=== PATIENT | female | born 1995 | race Hispanic/Latino ===

== ENCOUNTER 2018-08-26 18:51 | Observation (INO) | payer MEDICAID ==
[~2018-08-26] VITALS: Ht 149.9 cm; Wt 88.0 kg
== END 2018-08-26 21:30 | disposition home or self-care (01) ==
LOC: LDH 18:51
PROVIDERS: ADMIT Obstetrics & Gynecology; ATTEND Obstetrics & Gynecology
DX: O26.893 Other specified pregnancy related conditions, third trimester (principal); R10.30 Lower abdominal pain, unspecified; M54.9 Dorsalgia, unspecified; Z87.891 Personal history of nicotine dependence; O99.323 Drug use complicating pregnancy, third trimester; F12.90 Cannabis use, unspecified, uncomplicated; Z3A.34 34 weeks gestation of pregnancy
CPT/HCPCS: G0378 ×4

== ENCOUNTER 2020-12-17 11:09 | Emergency (ER) | payer MEDICAID, OTHER ==
[~2020-12-17 11:09] MED LIST: FERR-82 PO; PNV1TABL17 PO
[2020-12-17] MEDS ORDERED: METOCLOPRAMIDE 10 MG/2 ML VIAL ONE (11:32)
[2020-12-17 11:33] LABS: BASOPHILS % (AUTO) 0.3 % (0.0-5.0); EOSINOPHILS % (AUTO) 0.2 % (0.0-8.0); HEMATOCRIT 35.9 % (36-48); LYMPHOCYTES % (AUTO) 13.4 % (21.0-51.0); MEAN CORPUSCULAR HEMOGLOBIN 27.8 pg (27.0-33.0); MEAN CORPUSCULAR HGB CONC 32.9 g/dL (32.0-36.0); MEAN CORPUSCULAR VOLUME 84.7 fL (79-99); MONOCYTES % (AUTO) 2.9 % (3.0-13.0); NEUTROPHILS % (AUTO) 82.6 % (40.0-77.0); PLATELET COUNT (AUTO) 326 K/uL (130-400); RED BLOOD CELL COUNT(AUTO) 4.24 MIL/uL (4.00-5.50); RED CELL DISTRIBUTION WIDTH 14.2 % (11.0-15.5); WHITE BLOOD COUNT (AUTO) 14.5 K/uL (4.8-10.8)
[2020-12-17 11:41] LABS: CREATININE 0.6 mg/dL (0.5-1.5); POTASSIUM 3.9 mmol/L (3.5-5.1)
[2020-12-17 11:48] LABS: ALBUMIN 3.3 g/dL (3.5-5.0); BILIRUBIN,TOTAL 0.3 mg/dL (0.2-1.0); TOTAL PROTEIN, SERUM 7.5 g/dL (6.0-8.3)
[2020-12-17] MEDS ORDERED: 0.9%NACL 1000ML 1,000 ML IV ONE (11:49)
[2020-12-17 12:02] LABS: APPEARANCE,URINE Cloudy (CLEAR); BILIRUBIN,URINE Negative (NEGATIVE); COLOR,URINE Yellow (YELLOW); GLUCOSE, URINE (UA) Negative (NEGATIVE); KETONES,URINE Trace mg/dL (NEGATIVE); LEUKOCYTE ESTERASE ,URINE Trace (NEGATIVE); NITRATE,URINE Negative (NEGATIVE); OCCULT BLOOD,URINE Trace (NEGATIVE); PH,URINE 7.5 (5.0-8.0); PROTEIN,URINE Trace mg/dL (NEGATIVE)
[2020-12-17 12:05] LABS: HCG,QUAL RESULT POSITIVE (NEGATIVE)
[2020-12-17 12:10] LABS: BACTERIA,URINE Moderate /HPF (None Seen); MUCUS,URINE Moderate LPF (None Seen); SQUAMOUS EPITHELIAL CELL,UR 30-50 /HPF (0-2)
== END 2020-12-17 13:41 | disposition home or self-care (01) ==
LOC: EDH 11:09
DX: O26.891 Other specified pregnancy related conditions, first trimester (principal); R82.71 Bacteriuria; O21.8 Other vomiting complicating pregnancy; R10.30 Lower abdominal pain, unspecified; Z3A.08 8 weeks gestation of pregnancy
CPT/HCPCS: 36415; 76801; 80053; 81001; 81025; 83690; 84702; 85025; 86850; 86900; 86901; 87077; 87088; 87186; 96361; 96374; 99284; J2765; J7030

== ENCOUNTER 2021-07-10 14:11 | Inpatient (IN) | payer MEDICAID ==
[~2021-07-10] VITALS: Ht 149.9 cm; Wt 94.3 kg
[2021-07-10 15:11] LABS: AMPHET/METH SCREEN,URINE NEGATIVE (NEGATIVE); BARBITURATE SCREEN, URINE NEGATIVE (NEGATIVE); BENZODIAZEPINES SCREEN,URINE NEGATIVE (NEGATIVE); CANNABINOID SCREEN,URINE NEGATIVE (NEGATIVE); COCAINE SCREEN,URINE NEGATIVE (NEGATIVE); OPIATE SCREEN,URINE NEGATIVE (NEGATIVE); PHENCYCLIDINE SCREEN,URINE NEGATIVE (NEGATIVE)
[2021-07-10] MEDS ORDERED: LACTATED RINGERS 1000ML 1,000 ML IV ONE (15:37)
[2021-07-10] MEDS ORDERED: LACTATED RINGERS 1000ML 1,000 ML IV SCH ×2 (16:00→18:00)
[2021-07-10] MEDS ORDERED: CEFAZOLIN SODIUM 1 GM VIAL ONE (17:56)
[2021-07-10] MEDS ORDERED: CITRIC ACID/SODIUM CITRATE 30 ML UDCUP ONE (17:57)
[2021-07-10] MEDS ORDERED: METOCLOPRAMIDE 10 MG/2 ML VIAL ONE (17:57)
[2021-07-10] MEDS ORDERED: CITRIC ACID/SODIUM CITRATE 30 ML UDCUP PO PRN (18:00)
[2021-07-10] MEDS ORDERED: METOCLOPRAMIDE 10 MG/2 ML VIAL IVP PRN (18:00)
[2021-07-10] MEDS ORDERED: CEFAZOLIN SODIUM 1 GM VIAL IVP PRN (18:00)
[2021-07-10 18:14] LABS: HEMATOCRIT 30.9 % (36-48); MEAN CORPUSCULAR HEMOGLOBIN 26.6 pg (27.0-33.0); MEAN CORPUSCULAR HGB CONC 31.7 g/dL (32.0-36.0); MEAN CORPUSCULAR VOLUME 83.7 fL (79-99); RED BLOOD CELL COUNT(AUTO) 3.69 MIL/uL (4.00-5.50); RED CELL DISTRIBUTION WIDTH 14.9 % (11.0-15.5); WHITE BLOOD COUNT (AUTO) 8.2 K/uL (4.8-10.8)
[2021-07-10] MEDS ORDERED: FENTANYL CITRATE PF 50 MCG/1 ML 2ML VIAL ONE (18:15)
[2021-07-10] MEDS ORDERED: MORPHINE PF 100MG/10ML AMP IV ONE (18:15)
[2021-07-10] MEDS ORDERED: CEFAZOLIN SODIUM 1 GM VIAL IVP ONE (18:22)
[2021-07-10] MEDS ORDERED: CITRIC ACID/SODIUM CITRATE 30 ML UDCUP PO SCH (18:30)
[2021-07-10] MEDS ORDERED: ONDANSETRON 4MG INJ ONE (18:41)
[2021-07-10] MEDS ORDERED: PHENYLEPHRINE HCL 10 MG/ML 1ML VIAL IV ONE (19:06)
[2021-07-10] MEDS ORDERED: ONDANSETRON 4MG INJ IVP PRN (20:00)
[2021-07-10] MEDS ORDERED: NALOXONE HCL 0.4 MG/1 ML ML IVP PRN ×2 (20:00)
[2021-07-10] MEDS ORDERED: LORATADINE 10 MG TABLET PO PRN (20:00)
[2021-07-10] MEDS ORDERED: PROMETHAZINE HCL 25 MG/ML 1ML AMPULE IM PRN (20:00)
[2021-07-10] MEDS ORDERED: OXYTOCIN-LR 20 UNITS/1000 ML 1,000 ML IV PRN (20:00)
[2021-07-10] MEDS ORDERED: CALDOLOR 800MG+NS 250ML 250 ML IV PRN (20:00)
[2021-07-10] MEDS ORDERED: MEPERIDINE-PF 25 MG/ML SYG IV PRN (20:00)
[2021-07-10] MEDS ORDERED: DiphenhydrAMINE HCL 50 MG/ML VIAL IVP PRN (20:00)
[2021-07-10] MEDS ORDERED: MEPERIDINE-PF 75 MG/ML SYG IM PRN (20:00)
[2021-07-10] MEDS ORDERED: 0.9%NACL 10ML VIAL IVP PRN (20:00)
[2021-07-10] MEDS ORDERED: EPHEDRINE SULFATE 50 MG/ML AMPULE IVP PRN (20:00)
[2021-07-10] MEDS ORDERED: DEXTROSE 5 %-0.45 % NACL 1,000 ML IV PRN (20:00)
[2021-07-10 21:31] VITALS: BP 117/76
[2021-07-10 23:13] VITALS: BP 108/68
[2021-07-11 03:17] VITALS: BP 112/76
[2021-07-11] MEDS: CALDOLOR 800MG+NS 250ML 250 ML IV SCH ×2 (03:51→12:00)
[2021-07-11 06:54] LABS: HEMATOCRIT 33.7 % (36-48); MEAN CORPUSCULAR HEMOGLOBIN 26.6 pg (27.0-33.0); MEAN CORPUSCULAR HGB CONC 31.8 g/dL (32.0-36.0); MEAN CORPUSCULAR VOLUME 83.6 fL (79-99); RED BLOOD CELL COUNT(AUTO) 4.03 MIL/uL (4.00-5.50); RED CELL DISTRIBUTION WIDTH 14.8 % (11.0-15.5); WHITE BLOOD COUNT (AUTO) 12.6 K/uL (4.8-10.8)
[2021-07-11 07:23] VITALS: BP 117/67
[2021-07-11] MEDS ORDERED: ACETAMINOPHEN 500 MG TABLET PO PRN (08:00)
[2021-07-11] MEDS ORDERED: BISACODYL 10 MG SUPP.RECT RC PRN (08:00)
[2021-07-11] MEDS ORDERED: HYDROCODONE/ACETAMINOPHEN 5/325 MG TAB PO PRN (08:00)
[2021-07-11] MEDS: SIMETHICONE 80 MG TAB.CHEW PO PRN ×2 (09:00→21:45)
[2021-07-11] MEDS: DOCUSATE SODIUM 100 MG CAP PO SCH ×2 (09:00→21:44)
[2021-07-11] MEDS: DIPH,PERTUSS(ACELL),TET VAC/PF 0.5 ML VIAL IM SCH ×2 (09:01→20:56)
[2021-07-11] MEDS: ACETAMINOPHEN WITH CODEINE 1 TAB TAB PO PRN (09:01)
[2021-07-11 10:31] LABS: RAPID PLASMA REAGIN NONREACTIVE (NONREACTIVE)
[2021-07-11] MEDS ORDERED: IBUPROFEN 800 MG TAB PO SCH (12:00)
[2021-07-11 12:01] VITALS: BP 127/63
[2021-07-11 16:17] VITALS: BP 146/82
[2021-07-11 20:00] VITALS: BP 112/69
[2021-07-11] MEDS: IBUPROFEN 800 MG TAB PO SCH (21:45)
[2021-07-11 23:39] VITALS: BP 109/70
[2021-07-12 03:20] VITALS: BP 116/76
[2021-07-12] MEDS: IBUPROFEN 800 MG TAB PO SCH ×3 (05:31→20:43)
[2021-07-12 07:15] LABS: HEPATITIS Bs ANTIGEN SCREEN P Negative (Negative)
[2021-07-12 07:45] VITALS: BP 130/79
[2021-07-12] MEDS: SIMETHICONE 80 MG TAB.CHEW PO PRN ×2 (08:39→20:44)
[2021-07-12] MEDS: DOCUSATE SODIUM 100 MG CAP PO SCH ×2 (08:39→20:44)
[2021-07-12 11:46] VITALS: BP 145/83
[2021-07-12 16:25] VITALS: BP 139/93
[2021-07-12] MEDS: ACETAMINOPHEN WITH CODEINE 1 TAB TAB PO PRN (17:54)
[2021-07-12 21:33] VITALS: BP 141/85
[2021-07-12 23:20] VITALS: BP 129/82
[2021-07-13 03:07] VITALS: BP 107/60
[2021-07-13] MEDS: IBUPROFEN 800 MG TAB PO SCH ×2 (03:12→11:41)
[2021-07-13 07:19] VITALS: BP 135/101
[2021-07-13 08:19] VITALS: BP 136/85
[2021-07-13] MEDS: SIMETHICONE 80 MG TAB.CHEW PO PRN (08:35)
[2021-07-13] MEDS: DOCUSATE SODIUM 100 MG CAP PO SCH (08:35)
[2021-07-13] MEDS ORDERED: DOCU-116 PO (11:05)
[2021-07-13] MEDS ORDERED: IBUP-2077 PO (11:06)
[2021-07-13] MEDS ORDERED: ACET1TAB25 PO (11:07)
[2021-07-13 11:51] VITALS: BP 140/73
== END 2021-07-13 12:25 | disposition home or self-care (01) | DRG 540 ==
LOC: EDH 14:11 → OBSVTOIN 14:12 → LDH 14:12 → WSH 21:30
PROVIDERS: ADMIT Obstetrics & Gynecology; ATTEND Obstetrics & Gynecology
PROC: 10D00Z1 Extraction of Products of Conception, Low, Open Approach (ICD-10-PCS; principal; 2021-07-10 18:14)
DX: O34.211 Maternal care for low transverse scar from previous cesarean delivery (principal); K66.0 Peritoneal adhesions (postprocedural) (postinfection); O69.1XX0 Labor and delivery complicated by cord around neck, with compression, not applicable or unspecified; O99.62 Diseases of the digestive system complicating childbirth; Z37.0 Single live birth; Z3A.37 37 weeks gestation of pregnancy
CPT/HCPCS: 36415; 59510; 76805; 80305; 85027; 86592; 86701; 86850; 86900; 86901; 87340; 87390; 90715; A4344; G0378; J0690; J1741; J2274; J2370; J2405; J2590; J2765; J3010; J7120

== ENCOUNTER 2021-07-28 17:08 | Emergency (ER) | payer MEDICAID ==
[~2021-07-28] VITALS: Ht 149.9 cm; Wt 89.8 kg
[~2021-07-28 17:08] MED LIST changes: +ACET1TAB25 PO; +DOCU-116 PO; +IBUP-2077 PO
[2021-07-28] MEDS ORDERED: D-ME1POW16 PO (18:39)
[2021-07-28 18:56] VITALS: BP 121/75
== END 2021-07-28 18:57 | disposition home or self-care (01) ==
LOC: EDH 17:08
DX: J06.9 Acute upper respiratory infection, unspecified (principal); Z20.822 Contact with and (suspected) exposure to COVID-19; Z79.1 Long term (current) use of non-steroidal anti-inflammatories (NSAID); Z79.899 Other long term (current) drug therapy
CPT/HCPCS: 71045; 87635; 87804 ×2; 87880; 99284; C9803

== ENCOUNTER 2022-08-03 17:10 | Emergency (ER) | payer MEDICAID ==
[~2022-08-03] VITALS: Ht 149.9 cm; Wt 83.0 kg
[~2022-08-03 17:10] MED LIST changes: +ACET-2079 PO; -ACET1TAB25 PO; +D-ME1POW16 PO
[2022-08-03 17:11] VITALS: BP 131/76
[2022-08-03 17:51] LABS: APPEARANCE,URINE CLOUDY (CLEAR); BILIRUBIN,URINE NEGATIVE (NEGATIVE); COLOR,URINE YELLOW (YELLOW); GLUCOSE, URINE (UA) NEGATIVE (NEGATIVE); KETONES,URINE NEGATIVE (NEGATIVE); LEUKOCYTE ESTERASE ,URINE 75 Leu/uL (NEGATIVE); NITRATE,URINE 1+ (NEGATIVE); OCCULT BLOOD,URINE SMALL (NEGATIVE); PH,URINE 6.5 (5.0-8.0); PROTEIN,URINE 30 mg/dL (NEGATIVE); UROBILINOGEN,URINE 3 mg/dL (0.2-1.0)
[2022-08-03 17:51] LABS: BASOPHILS % (AUTO) 0.5 % (0.0-5.0); EOSINOPHILS % (AUTO) 0.8 % (0.0-8.0); HEMATOCRIT 35.7 % (36-48); LYMPHOCYTES % (AUTO) 17.7 % (21.0-51.0); MEAN CORPUSCULAR HGB CONC 33.1 g/dL (32.0-36.0); MEAN CORPUSCULAR VOLUME 84.8 fL (79-99); NEUTROPHILS % (AUTO) 76.7 % (40.0-77.0); PLATELET COUNT (AUTO) 315 K/uL (130-400); RED BLOOD CELL COUNT(AUTO) 4.21 MIL/uL (4.00-5.50); RED CELL DISTRIBUTION WIDTH 13.2 % (11.0-15.5); WHITE BLOOD COUNT (AUTO) 10.8 K/uL (4.8-10.8)
[2022-08-03 18:01] LABS: BACTERIA,URINE MOD /HPF (None Seen); MUCUS,URINE MOD LPF (None Seen); OTHER CASTS, URINE 4 /LPF (None Seen); RBC,URINE 26-50 /HPF (0-1); SQUAMOUS EPITHELIAL CELL,UR MOD /HPF (0-2)
[2022-08-03 18:11] LABS: ALBUMIN 3.3 g/dL (3.5-5.0); CREATININE 0.6 mg/dL (0.5-1.5); POTASSIUM 3.5 mmol/L (3.5-5.1); TOTAL PROTEIN, SERUM 7.7 g/dL (6.0-8.3)
== END 2022-08-03 23:44 | disposition left against medical advice (07) ==
LOC: EDH 17:10
DX: O26.891 Other specified pregnancy related conditions, first trimester (principal); R51.9 Headache, unspecified; R50.9 Fever, unspecified; Z3A.01 Less than 8 weeks gestation of pregnancy; Z53.21 Procedure and treatment not carried out due to patient leaving prior to being seen by health care provider
CPT/HCPCS: 36415; 80053; 81001; 81025; 85025; 87077; 87088; 87186

== ENCOUNTER 2023-12-31 19:10 | Emergency (ER) | payer MEDICAID ==
[~2023-12-31] VITALS: Ht 149.9 cm; Wt 83.0 kg
[2023-12-31 19:31] LABS: ADD UA MICROSCOPIC YES; APPEARANCE,URINE CLOUDY (CLEAR); BILIRUBIN,URINE NEGATIVE (NEGATIVE); COLOR,URINE YELLOW (YELLOW); GLUCOSE, URINE (UA) NEGATIVE (NEGATIVE); KETONES,URINE 5 mg/dL (NEGATIVE); LEUKOCYTE ESTERASE ,URINE NEGATIVE Leu/uL (NEGATIVE); NITRATE,URINE NEGATIVE (NEGATIVE); OCCULT BLOOD,URINE MODERATE (NEGATIVE); PROTEIN,URINE 50 mg/dL (NEGATIVE)
[2023-12-31 19:34] LABS: BACTERIA,URINE RARE /HPF (None Seen); MUCUS,URINE FEW LPF (None Seen); RBC,URINE 26-50 /HPF (0-1); SQUAMOUS EPITHELIAL CELL,UR FEW /HPF (0-2); UNCLASSIFIED CRYSTAL 2 /HPF (None Seen)
[2023-12-31 21:06] LABS: BASOPHILS # (AUTO) 0.03 K/uL (0.00-0.20); BASOPHILS % (AUTO) 0.3 % (0.0-5.0); EOSINOPHILS # (AUTO) 0.04 K/uL (0.00-0.70); EOSINOPHILS % (AUTO) 0.5 % (0.0-8.0); IMMATURE GRANULOCYTE ABSOLUTE 0.03 K/uL (0-1); LYMPHOCYTES # (AUTO) 1.9 K/uL (1.0-4.8); LYMPHOCYTES % (AUTO) 21.6 % (21.0-51.0); MEAN CORPUSCULAR HEMOGLOBIN 27.1 pg (27.0-33.0); MEAN CORPUSCULAR VOLUME 84.5 fL (79-99); MONOCYTES # (AUTO) 0.4 K/uL (0.1-1.0); MONOCYTES % (AUTO) 4.7 % (3.0-13.0); NEUTROPHILS # (AUTO) 6.4 K/uL (1.8-7.7); NEUTROPHILS % (AUTO) 72.6 % (40.0-77.0); PLATELET COUNT (AUTO) 278 K/uL (130-400); RED BLOOD CELL COUNT(AUTO) 4.14 MIL/uL (4.00-5.50); RED CELL DISTRIBUTION WIDTH 14.1 % (11.0-15.5); WHITE BLOOD COUNT (AUTO) 8.9 K/uL (4.8-10.8)
[2023-12-31 21:21] LABS: CREATININE 0.5 mg/dL (0.5-1.0); POTASSIUM 3.6 mmol/L (3.5-5.1)
[2023-12-31 21:50] LABS: BILIRUBIN,TOTAL 0.4 mg/dL (0.2-1.0)
[2023-12-31 21:51] LABS: ALBUMIN 3.4 g/dL (3.5-5.0)
[2023-12-31 22:46] VITALS: BP 125/75; PULSE 81; RESP 18; O2SAT 99
== END 2023-12-31 22:47 | disposition home or self-care (01) ==
LOC: EDH 19:10
DX: O26.891 Other specified pregnancy related conditions, first trimester (principal); R10.2 Pelvic and perineal pain; Z3A.10 10 weeks gestation of pregnancy
CPT/HCPCS: 36415; 76801; 80053; 81001; 84702; 85025